=== PATIENT | male | born 1995 | race Caucasian/White ===

== ENCOUNTER 2017-05-06 13:29 | Emergency (ER) | payer OTHER ==
[~2017-05-06] VITALS: Ht 185.4 cm; Wt 95.5 kg
[~2017-05-06 13:29] MED LIST: ASPI325T6 PO; ASPIRIN 32325 MG/TA1 PO; NO HOME MEDICATIONS; NORCO 325 MG-7.1 TAB PO
[2017-05-06 13:37] VITALS: BP 123/70; TEMP 97.8
[2017-05-06] MEDS ORDERED: BACTRIM DS 8001 TAB PO (14:03)
[2017-05-06] MEDS ORDERED: CLEOCIN HCL300 MG PO (14:43)
[2017-05-06 15:11] LABS: BASO % 0.4 % (0.0-2.0); EOS # 0.3 (0.0-0.7); EOS % 3.7 % (0-4.0); GRAN # 5.9 (1.4-6.5); GRAN % 70.9 % (42.2-75.2); HEMATOCRIT 48.6 % (42.0-52.0); HEMOGLOBIN 16.5 g/dl (13.5-18.0); LYMPH # 1.5 (1.2-3.4); LYMPH % 17.6 % (20.0-51.0); MEAN CELL VOLUME 85 fl (80.0-100.0); MEAN CORPUSCULAR HEMOGLOBIN 29 pg (27.0-31.0); MEAN CORPUSCULAR HGB CONC 34 g/dl (33.0-37.0); MEAN PLATELET VOLUME 9.8 fl (7.4-10.4); MONO # 0.6 (0.1-0.6); PLATELET COUNT 301 K/mm3 (130-400); RED BLOOD COUNT 5.74 M/mm3 (4.20-5.60); WHITE BLOOD COUNT 8.3 K/mm3 (4.8-10.8)
[2017-05-06 15:37] LABS: ERYTHROCYTE SEDIMENTATION RATE 8 mm/hr (0-15)
[2017-05-06 15:40] VITALS: PULSE 92
== END 2017-05-06 15:40 | disposition home or self-care (01) ==
LOC: COL.ER 13:29
PROVIDERS: Physician Assistant
DX: L03.115 Cellulitis of right lower limb (principal); F17.210 Nicotine dependence, cigarettes, uncomplicated

== ENCOUNTER 2019-09-19 09:01 | Outpatient (RCR) | payer SELFPAY ==
[~2019-09-19 09:01] MED LIST changes: +BACTRIM DS 8001 TAB PO; +CLEOCIN HCL300 MG PO
== END 2019-11-03 16:12 | disposition home or self-care (01) ==
LOC: WSOT 09:01
DX: S66.391A Other injury of extensor muscle, fascia and tendon of left index finger at wrist and hand level, initial encounter (principal)

== ENCOUNTER 2020-08-19 16:06 | Emergency (ER) | payer OTHER ==
[~2020-08-19] VITALS: Ht 185.4 cm; Wt 81.8 kg
[2020-08-19 16:07] VITALS: TEMP 98.1
[2020-08-19 18:41] VITALS: BP 128/87; PULSE 93
== END 2020-08-19 18:05 | disposition home or self-care (01) ==
LOC: COL.ER 16:06
DX: S50.12XA Contusion of left forearm, initial encounter (principal); S60.212A Contusion of left wrist, initial encounter; F17.210 Nicotine dependence, cigarettes, uncomplicated; V89.2XXA Person injured in unspecified motor-vehicle accident, traffic, initial encounter